=== PATIENT | male | born 1955 | race American Indian/Alaskan Native ===

== ENCOUNTER 2019-05-01 09:30 | Outpatient (CLI) | payer OTHER ==
--- NOTE | 2019-05-01 10:29 | XRay Report ---
BILATERAL KNEES HISTORY: Knee pain. COMPARISON: None. TECHNIQUE: 2 views of each knee were obtained. FINDINGS: Bones: No fracture or dislocation. Joint spaces: Maintained. Mild osteoarthritis, worse in the left patellofemoral joint and the right m edial joint. Soft tissues: No significant abnormality. No joint effusion. Bilateral benign calcifications. Additional findings: Bilateral quadriceps enthesophytes. IMPRESSION: 1. Mild bilateral osteoarthritis. 2. Bilateral quadriceps enthesopathy. Signer Name: Fabian Leal MD Signed: 05/01/2019 10:24 AM Workstation Name: [id number]
== END 2019-05-01 09:31 | disposition home or self-care (01) ==
LOC: XRAY 09:30
PROVIDERS: ATTEND Internal Medicine
DX: Z02.71 Encounter for disability determination (principal); M17.0 Bilateral primary osteoarthritis of knee; M76.892 Other specified enthesopathies of left lower limb, excluding foot; M76.891 Other specified enthesopathies of right lower limb, excluding foot